=== PATIENT | male | born 1945 | race Caucasian/White ===

== ENCOUNTER → 2018-08-25 06:30 | Outpatient (CLI) | payer MEDICARE, OTHER, SELFPAY ==
--- NOTE | 2018-08-25 | DI.MRI.S_ITS ---
PROCEDURE: MR HEAD/BRAIN WO CON INDICATIONS: CEREBROVASCULAR DISEASE TECHNIQUE: Non-contrast axial T1 spin echo, axial T2 fast spin echo, sagittal and axial FLAIR, coronal T2 fast spin echo, axial gradient echo, axial diffusion and ADC through the brain. COMPARISON: None. FINDINGS: Image quality: Excellent. CSF spaces: Ventricles appear symmetric in size and shape. Basal cisterns are patent. No extra-axial fluid collections. Brain: No intracranial bleeds. The pituitary demonstrates a convex superior contour. There is cerebral volume loss for age. There are periventricular and deep white matter chronic small vessel ischemic changes. Brainstem appears normal. Diffusion-weighted images show no acute ischemic insults. No chronic ischemic insults. Normal intravascular flow voids are present. Skull and face: Calvarial bone marrow is normal in signal. Orbits are normal. Sinuses: Sinuses and mastoids are clear. IMPRESSION: 1. Volume loss and small vessel ischemic disease. 2. No acute process. No recent infarct. 3. Convex superior contour of the pituitary. This may represent a normal variant. However, if there is clinical/laboratory evidence for pituitary microadenoma, pituitary protocol MRI may be helpful for further assessment. Dictated by: Edilma Serra M.D. on 08/25/2018 at 8:45 Approved by: Edilma Serra M.D. on 08/25/2018 at 8:48
== END ==
PROVIDERS: Visit Provider Internal Medicine
DX: I67.89 Other cerebrovascular disease (principal); I67.82 Cerebral ischemia
CPT/HCPCS: 70551